=== PATIENT | female | born 1970 | race Caucasian/White ===

== ENCOUNTER → 2018-02-26 | Outpatient (CLI) | payer OTHER ==
--- NOTE | 2018-03-01 09:57 | MM ---
Reason for exam: clinical finding. History: Family history of breast cancer in 3 maternal aunts. Benign excisional biopsy of both breasts. Indicated problem(s): lump or thickening and pain in the left breast. Physical Findings: Nurse Summary: 1.5cm nodule in the right breast at 9 o'clock and a 1.5cm nodule in the left breast at 1 o'clock (nurse mj). MG 3D Diag Mammo W/Cad CINDY Bilateral CC and MLO view(s) were taken. LM, CC with magnification, and LM with magnification view(s) were taken of the right breast. There are two spiculated right masses. First in the right upper outer quadrant measuring at least 1.1cm and the second in the central inner right breast at least 5mm. There are regional calcifications spanning over 5.9cm in the upper outer quadrant of the right breast adjacent and within the right masses. These results were verbally communicated with the patient and result sheet given to the patient on 02/26/18. ASSESSMENT: Incomplete: need additional imaging evaluation, BI-RAD 0 RECOMMENDATION: Ultrasound of the right breast.
--- NOTE | 2018-03-01 10:01 | USB ---
Reason for exam: clinical finding. History: Family history of breast cancer in 3 maternal aunts. Benign excisional biopsy of both breasts. US Breast BILAT Left complete breast ultrasound includes all four quadrants, the retroareolar region and axilla. Finding demonstrates a 6 x 3 x 5mm hypoechoic lesion at 7 o'clock, management based of right biopsy. Right complete breast ultrasound includes all four quadrants, the retroareolar region and axilla. Finding demonstrates a 3 x 2 x 3mm cystic lesion too small to characterize at 9 o'clock palpable, a 1.1 x 0.6 x 1.2cm solid, hypoechoic lesion at 12 o'clock for which a biopsy is recommended, a 1.4 x 0.7 x 1.6cm solid, hypoechoic lesion at 12 o'clock for which a biopsy is recommended and a 0.3 x 0.3 x 0.4cm hypoechoic lesion too small to characterize at 12 o'clock. These results were verbally communicated with the patient and result sheet given to the patient on 02/26/18. ASSESSMENT: Highly suggestive of malignancy, BI-RAD 5 RECOMMENDATION: Ultrasound core biopsy of the right breast. (x 2) Called with mammographic findings and has scheduled an appointment for the patient for 03/02/18 at 2:[address] Meier. PRELIMINARY REPORT CALLED AND FAXED TO DR. MEIER ON 03/01/18.
== END | disposition home or self-care (01) ==
LOC: RADMAMWWP 13:56
PROVIDERS: ATTEND Obstetrics & Gynecology
DX: N64.4 Mastodynia (principal); N63.20 Unspecified lump in the left breast, unspecified quadrant
CPT/HCPCS: 77062; 77066

== ENCOUNTER → 2018-05-27 | Outpatient (CLI) | payer BC ==
--- NOTE | 2018-05-27 18:10 | ECHOF ---
Referral Reason:Z01.818 Pre Chemo MEASUREMENTS -------- HEIGHT: 175.3 cm WEIGHT: 93.0 kg BP: 126/64 RVIDd: 2.9 cm (< 3.3) IVSd: 1.0 cm (0.6 - 1.1) LVIDd: 4.6 cm (3.9 - 5.3) LVPWd: 0.9 cm (0.6 - 1.1) IVSs: 1.5 cm LVIDs: 3.1 cm LVPWs: 1.6 cm LA Diam: 3.0 cm (2.7 - 3.8) LAESV Index (A-L): 28.48 ml/m Ao Diam: 3.2 cm (2.0 - 3.7) MV EXCURSION: 16.659 mm (> 18.000) MV EF SLOPE: 113 mm/s (70 - 150) EPSS: 0.8 cm MV E Alberto: 0.81 m/s MV DecT: 312 ms MV A Alberto: 0.55 m/s MV E/A Ratio: 1.49 FINDINGS -------- Sinus rhythm. This was a technically adequate study. The left ventricular size is normal. Left ventricular wall thickness is normal. Overall left vent ricular systolic function is normal with, an EF between 55 - 60 %. The right ventricle is normal in size. Normal LA size by volume 22+/-6 ml/m2. The right atrial size is normal. The aortic valve is trileaflet, and appears structurally normal. No aortic stenosis or regurgitation. Normal appearing mitral valve. The tricuspid valve appears structurally normal. The pulmonic valve was not well visualized. There is no pulmonic regurgitation present. The aortic root size is normal. Normal inferior vena cava with normal inspiratory collapse consistent with estimated right atrial pre ssure of 5 mmHg. There is no pericardial effusion. CONCLUSIONS -------- 1. Sinus rhythm. 2. This was a technically adequate study. 3. The left ventricular size is normal. 4. Left ventricular wall thickness is normal. 5. Overall left ventricular systolic function is normal with, an EF between 55 - 60 %. 6. Normal LA size by volume 22+/-6 ml/m2. 7. The aortic valve is trileaflet, and appears structurally normal. No aortic stenosis or regurgitati on. 8. Normal appearing mitral valve. 9. The tricuspid valve appears structurally normal. 10. The pulmonic valve was not well visualized. 11. There is no pulmonic regurgitation present. 12. The aortic root size is normal. 13. Normal inferior vena cava with normal inspiratory collapse consistent with estimated right atrial pressure of 5 mmHg. 14. There is no pericardial effusion. TIN POURER: Aracelis Sosa RDCS
== END | disposition home or self-care (01) ==
LOC: RADECHMAIN 14:38
PROVIDERS: ATTEND Internal Medicine Hematology & Oncology
DX: Z01.818 Encounter for other preprocedural examination (principal); Z88.5 Allergy status to narcotic agent
CPT/HCPCS: 93306

== ENCOUNTER 2018-06-21 20:59 | Observation (INO) | payer BC ==
[2018-06-21] MEDS ORDERED: TRIMETHOBENZAMIDE 100 MG/ML 2 ML VIAL IM STA (22:54)
[2018-06-21] MEDS ORDERED: SODIUM CHLORIDE 0.9% 1,000 ML IV STA (22:54)
[2018-06-21] MEDS ORDERED: diphenhydrAMINE 50 MG/ML 1 ML VIAL IVP STA (22:54)
[2018-06-21] MEDS ORDERED: LORazepam 2 MG/ML INJ IV STA (22:54)
[2018-06-21 23:26] LABS: Basophils % (A) 0 %; Eosinophils % (A) 0 %; HCT 37.5 % (34.0-46.0); HGB 12.7 gm/dL (11.4-16.0); Lymphocytes # (A) 0.6 k/uL (1.0-4.8); Lymphocytes % (A) 5 %; MCH 30.6 pg (25.0-35.0); MCHC 33.8 g/dL (31.0-37.0); MCV 90.6 fL (80.0-100.0); Mean Platelet Volume 8.2; Monocytes # (A) 0.2 k/uL (0-1.0); Monocytes % (A) 2 %; Neutrophils % (A) 92 %; Platelet Count 209 k/uL (150-450); RBC 4.14 m/uL (3.80-5.40); RDW 13.5 % (11.5-15.5); WBC 10.8 k/uL (3.8-10.6)
[2018-06-21 23:41] LABS: ALT 82 U/L (9-52); AST 50 U/L (14-36); Albumin 4.1 g/dL (3.5-5.0); Alkaline Phosphatase 92 U/L (38-126); Amylase 52 U/L (30-110); Anion Gap 10 mmol/L; Blood Urea Nitrogen 11 mg/dL (7-17); Calcium 9.5 mg/dL (8.4-10.2); Carbon Dioxide 20 mmol/L (22-30); Chloride 102 mmol/L (98-107); Glucose 126 mg/dL (74-99); Lipase 55 U/L (23-300); Sodium 132 mmol/L (137-145); Total Bilirubin 0.6 mg/dL (0.2-1.3); Total Protein 6.9 g/dL (6.3-8.2)
[2018-06-22 00:12] LABS: Appearance,Urine Clear (Clear); Bacteria,Urine Rare /hpf; Bilirubin,Urine Negative (Negative); Blood,Urine Negative (Negative); Color,Urine Yellow; Glucose,Urine (UA) Negative (Negative); Ketones,Urine 1+ (Negative); Leukocyte Esterase,Urine Negative (Negative); Mucus,Urine Occasional /hpf; Nitrite,Urine Negative (Negative); PH, Urine 8.5 (5.0-8.0); Protein,Urine 1+ (Negative); RBC,Urine 2 /hpf (0-5); Specific Gravity,Urine 1.019 (1.001-1.035); Squamous Epithelial Cell,Urine 5 /hpf (0-4); Urobilinogen,Urine <2.0 mg/dL (<2.0); WBC,Urine <1 /hpf (0-5)
[2018-06-22] MEDS ORDERED: LORazepam 2 MG/ML INJ IV PRN (01:00)
[2018-06-22] MEDS ORDERED: TRIMETHOBENZAMIDE 100 MG/ML 2 ML VIAL IM PRN (01:05)
--- NOTE | 2018-06-22 01:05 | ED ---
Nausea/Vomiting/Diarrhea HPI - General Source: patient Mode of arrival: ambulatory Limitations: no limitations <Paula Bailey - Last Filed: 06/22/18 00:59> <Margarita Sheth - Last Filed: 06/22/18 04:28> - General Chief complaint: Nausea/Vomiting/Diarrhea Stated complaint: Dr maciel,post chemo-dizzy, abd pain Time Seen by Provider: 06/21/18 22:31 - History of Present Illness Initial comments: 48-year-old female patient with past medical history significant for breast cancer diagnosed in February 2018 presents to the emergency department today for complaints of vomiting, weakness, and dizziness after receiving her second dose of chemotherapy this morning. Patient states she did take her home Phenergan but it did not seem to help. States she's been unable to keep down any food or fluids. She denies any abdominal pain, constipation, or diarrhea with this. Denies any hematemesis. Denies any fever or chills with this. States that she did have this chemotherapy dosage one time in the past and did not have a similar reaction. Patient denies any recent rash, shortness breath, chest pain, back pain, numbness, tingling, hematuria, dysuria, urinary urgency, urinary frequency, headache, visual changes, or any other complaints. (Paula Bailey) - Related Data Home Medications Medication Instructions Recorded Confirmed Dexamethasone(Unknown Dose) 2 tab PO DIRECTED 06/21/18 06/21/18 Lactulose 30 gm PO BID 06/21/18 06/21/18 Prochlorperazine [Compazine] 10 mg PO Q6H PRN 06/21/18 06/21/18 Sennosides [Senokot] 8.6 mg PO BID PRN 06/21/18 06/21/18 Allergies Allergy/AdvReac Type Severity Reaction Status Date / Time acetaminophen [From Lortab] Allergy Rash/Hives Verified 06/21/18 22:34 hydrocodone [From Lortab] Allergy Rash/Hives Verified 06/21/18 22:34 Review of Systems ROS Other: All systems not noted in ROS Statement are negative. <Paula Bailey - Last Filed: 06/22/18 00:59> ROS Other: All systems not noted in ROS Statement are negative. <Margarita Sheth - Last Filed: 06/22/18 04:28> ROS Statement: Those systems with pertinent positive or pertinent negative responses have been documented in the HPI. Past Medical History Past Medical History: Cancer History of Any Multi-Drug Resistant Organisms: None Reported Past Surgical History: Breast Surgery Additional Past Surgical History / Comment(s): Port Past Psychological History: No Psychological Hx Reported Smoking Status: Former smoker Past Alcohol Use History: None Reported Past Drug Use History: None Reported <Paula Bailey M - Last Filed: 06/22/18 00:59> General Exam Limitations: no limitations General appearance: alert, in no apparent distress, other (This is a well- developed, well-nourished adult female patient in mild distress. Vital signs upon presentation are temperature 97.7F, pulse 71, respirations 18, blood pressure 132/75, pulse ox 100% on room air.) Eye exam: Present: normal appearance, PERRL, EOMI. Absent: scleral icterus, conjunctival injection, periorbital swelling ENT exam: Present: normal exam, normal oropharynx, mucous membranes moist Respiratory exam: Present: normal lung sounds bilaterally. Absent: respiratory distress, wheezes, rales, rhonchi, stridor Cardiovascular Exam: Present: regular rate, normal rhythm, normal heart sounds. Absent: systolic murmur, diastolic murmur, rubs, gallop, clicks GI/Abdominal exam: Present: soft, normal bowel sounds. Absent: distended, tenderness, guarding, rebound, rigid Neurological exam: Present: alert, oriented X3, CN II-XII intact Psychiatric exam: Present: normal affect, normal mood Skin exam: Present: warm, dry, intact, normal color. Absent: rash <Paula Bailey M - Last Filed: 06/22/18 00:59> Vital Signs 06/21/18 06/21/18 06/22/18 21:25 23:29 01:32 Temperature 97.7 F 97.4 F L Pulse Rate 71 73 78 Respiratory 18 16 19 Rate Blood Pressure 132/75 117/65 99/49 O2 Sat by Pulse 100 99 96 Oximetry Medical Decision Making - Lab Data Result diagrams: 06/21/18 22:06 06/21/18 22:06 - EKG Data -: EKG Interpreted by Me <Paula Bailey - Last Filed: 06/22/18 00:59> - Lab Data Result diagrams: 06/21/18 22:06 06/21/18 22:06 <Margarita Sheth - Last Filed: 06/22/18 04:28> - Medical Decision Making 48-year-old male patient presented to the emergency department today for evaluation of vomiting status post chemotherapy treatment this morning. Physical examination is relatively unremarkable. Labs reviewed and did reveal white blood cell count at 10.8. Neutrophil count 10.0. Sodium is 132, carbon dioxide is 20. Parent creatinine are normal. EKG did show normal sinus rhythm with a prolonged QT interval. Given the prolonged QT we did administer Tigan. Upon reevaluation patient reports continuing to feel very weak and nauseated. She has not had any further vomiting. Given the complexity of treating her nausea with EKG changes we will admit to hospital for further evaluation and continued administration of the Tigan. (Paula Bailey) I personally saw and examined the patient. I reviewed and agree with the mid- level provider findings including all diagnostic interpretations and treatment plans as written. I discussed patient care with Dr. Ramirez who accepts the admission for intractable nausea and vomiting and a chemotherapy patient. ( Margarita Sheth) - Lab Data Lab Results 06/21/18 06/21/18 06/21/18 Range/Units 22:06 22:06 23:26 WBC 10.8 H (3.8-10.6) k/uL RBC 4.14 (3.80-5.40) m/uL Hgb 12.7 (11.4-16.0) gm/dL Hct 37.5 (34.0-46.0) % MCV 90.6 (80.0-100.0) fL MCH 30.6 (25.0-35.0) pg MCHC 33.8 (31.0-37.0) g/dL RDW 13.5 (11.5-15.5) % Plt Count 209 (150-450) k/uL Neutrophils % 92 % Lymphocytes % 5 % Monocytes % 2 % Eosinophils % 0 % Basophils % 0 % Neutrophils # 10.0 H (1.3-7.7) k/uL Lymphocytes # 0.6 L (1.0-4.8) k/uL Monocytes # 0.2 (0-1.0) k/uL Eosinophils # 0.0 (0-0.7) k/uL Basophils # 0.0 (0-0.2) k/uL Sodium 132 L (137-145) mmol/L Potassium 4.0 (3.5-5.1) mmol/L Chloride 102 (98-107) mmol/L Carbon Dioxide 20 L (22-30) mmol/L Anion Gap 10 mmol/L BUN 11 (7-17) mg/dL Creatinine 0.41 L (0.52-1.04) mg/dL Est GFR (CKD-EPI)AfAm >90 (>60 ml/min/1.73 sqM) Est GFR (CKD-EPI)NonAf >90 (>60 ml/min/1.73 sqM) Glucose 126 H (74-99) mg/dL Calcium 9.5 (8.4-10.2) mg/dL Total Bilirubin 0.6 (0.2-1.3) mg/dL AST 50 H (14-36) U/L ALT 82 H (9-52) U/L Alkaline Phosphatase 92 (38-126) U/L Total Protein 6.9 (6.3-8.2) g/dL Albumin 4.1 (3.5-5.0) g/dL Amylase 52 (30-110) U/L Lipase 55 (23-300) U/L Urine Color Yellow Urine Appearance Clear (Clear) Urine pH 8.5 H (5.0-8.0) Ur Specific [place] 1.019 (1.001-1.035) Urine Protein 1+ H (Negative) Urine Glucose (UA) Negative (Negative) Urine Ketones 1+ H (Negative) Urine Blood Negative (Negative) Urine Nitrite Negative (Negative) Urine Bilirubin Negative (Negative) Urine Urobilinogen <2.0 (<2.0) mg/dL Ur Leukocyte Esterase Negative (Negative) Urine RBC 2 (0-5) /hpf Urine WBC <1 (0-5) /hpf Ur Squamous Epith Cells 5 H (0-4) /hpf Urine Bacteria Rare H (None) /hpf Urine Mucus Occasional H (None) /hpf - EKG Data EKG Comments: EKG obtained at 2228 shows normal sinus rhythm with a prolonged QT interval. Ventricular rate is 65, [place] interval 126, QRS duration 94, QTC 466, QTC 484. No evidence of ST elevation or depression. (Paula Bailey) Disposition Decision to Admit Reason: Admit from EC Decision Date: 06/22/18 Decision Time: 01:04 <Paula Bailey - Last Filed: 06/22/18 00:59> <Margarita Sheth - Last Filed: 06/22/18 04:28> Clinical Impression: Intractable vomiting, Chemotherapy induced nausea and vomiting Disposition: ADMITTED IP TO THIS [facility] Condition: Serious
[2018-06-22] MEDS: SODIUM CHLORIDE 0.9% 1,000 ML IV SCH (03:55)
[2018-06-22] MEDS ORDERED: SENNOSIDES 8.6 MG TAB PO PRN (08:18)
[2018-06-22] MEDS: LACTULOSE 20 GM/30 ML CUP PO SCH ×2 (09:09→19:12)
[2018-06-22] MEDS: PANTOPRAZOLE 40 MG/10 ML VIAL IV SCH (09:10)
[2018-06-22 09:40] LABS: ALT 74 U/L (9-52); AST 42 U/L (14-36); Albumin 3.7 g/dL (3.5-5.0); Alkaline Phosphatase 65 U/L (38-126); Anion Gap 7 mmol/L; Blood Urea Nitrogen 10 mg/dL (7-17); Calcium 9.3 mg/dL (8.4-10.2); Carbon Dioxide 23 mmol/L (22-30); Chloride 108 mmol/L (98-107); Glucose 118 mg/dL (74-99); Potassium 4.2 mmol/L (3.5-5.1); Sodium 138 mmol/L (137-145); Total Bilirubin 0.5 mg/dL (0.2-1.3); Total Protein 6.3 g/dL (6.3-8.2)
[2018-06-22 10:04] LABS: Basophils % (A) 0 %; Eosinophils % (A) 0 %; HCT 37.4 % (34.0-46.0); HGB 11.7 gm/dL (11.4-16.0); Lymphocytes # (A) 0.9 k/uL (1.0-4.8); Lymphocytes % (A) 5 %; MCH 29.1 pg (25.0-35.0); MCHC 31.3 g/dL (31.0-37.0); MCV 92.8 fL (80.0-100.0); Mean Platelet Volume 7.2; Monocytes # (A) 0.9 k/uL (0-1.0); Monocytes % (A) 5 %; Neutrophils # (A) 14.8 k/uL (1.3-7.7); Neutrophils % (A) 89 %; Platelet Count 221 k/uL (150-450); RBC 4.03 m/uL (3.80-5.40); RDW 13.7 % (11.5-15.5); WBC 16.6 k/uL (3.8-10.6)
--- NOTE | 2018-06-22 10:09 | P.HPIM ---
History of Present Illness H&P Date: 06/22/18 This is a 48-year-old female patient of Dr. Finn. Patient presented to the hospital with complaints of nausea and vomiting. Patient reports she was diagnosed in February 2018 with breast cancer. Patient underwent bilateral mastectomy. [facility] wall port [facility] and started chemotherapy. Patient nausea and vomiting. Patient also reports she's had issues with constipation since starting chemotherapy. Patient denies any other significant medical history. Oncology services have been consulted. Patient denies any fevers or other signs of infection. Patient denies shortness of breath or cough. Patient denies chest pain or shortness breath patient denies any nausea or vomiting currently. Patient denies any urinary burning or frequency. Review of Systems Please refer to HPI otherwise unremarkable Past Medical History Past Medical History: Cancer History of Any Multi-Drug Resistant Organisms: None Reported Past Surgical History: Breast Surgery Additional Past Surgical History / Comment(s): Port Past Psychological History: No Psychological Hx Reported Smoking Status: Former smoker Past Alcohol Use History: None Reported Past Drug Use History: None Reported - Past Family History Mother Family Medical History: Cancer Medications and Allergies Home Medications Medication Instructions Recorded Confirmed Type Dexamethasone(Unknown Dose) 2 tab PO DIRECTED 06/21/18 06/21/18 History Lactulose 30 gm PO BID 06/21/18 06/21/18 History Prochlorperazine [Compazine] 10 mg PO Q6H PRN 06/21/18 06/21/18 History Sennosides [Senokot] 8.6 mg PO BID PRN 06/21/18 06/21/18 History Allergies Allergy/AdvReac Type Severity Reaction Status Date / Time acetaminophen [From Lortab] Allergy Rash/Hives Verified 06/21/18 22:34 hydrocodone [From Lortab] Allergy Rash/Hives Verified 06/21/18 22:34 Physical Exam Vitals: Vital Signs Temp Pulse Pulse Resp BP BP Pulse Ox 06/22/18 05:00 98.0 F 77 16 101/53 96 06/22/18 01:32 97.4 F L 78 19 99/49 96 06/21/18 23:29 73 16 117/65 99 06/21/18 21:25 97.7 F 71 18 132/75 100 Intake and Output 06/21/18 06/22/18 06/22/18 22:59 06:59 14:59 Intake Total 700 Balance 700 Intake: Intake, IV Titration 460 Amount Sodium Chloride 0.9% 1, 460 000 ml @ 75 mls/hr IV . [id number] [facility] Rx#:[id number] Oral 240 Other: # Voids 1 Weight 97.522 kg Head normocephalic Neck supple Lungs clear to auscultation bilaterally no wheezing or crackles Heart regular rate and rhythm S1-S2, no rub or gallop Abdomen is soft nontender nondistended positive bowel sounds no hepatosplenomegaly Extremities no edema Neuro alert and orientated to 3 Results CBC & Chem 7: 06/21/18 22:06 06/22/18 09:06 Labs: Abnormal Lab Results - Last 24 Hours (Table) 06/21/18 06/21/18 06/21/18 Range/Units 22:06 22:06 23:26 WBC 10.8 H (3.8-10.6) k/uL Neutrophils # 10.0 H (1.3-7.7) k/uL Lymphocytes # 0.6 L (1.0-4.8) k/uL Sodium 132 L (137-145) mmol/L Chloride (98-107) mmol/L Carbon Dioxide 20 L (22-30) mmol/L Creatinine 0.41 L (0.52-1.04) mg/dL Glucose 126 H (74-99) mg/dL AST 50 H (14-36) U/L ALT 82 H (9-52) U/L Urine pH 8.5 H (5.0-8.0) Urine Protein 1+ H (Negative) Urine Ketones 1+ H (Negative) Ur Squamous Epith Cells 5 H (0-4) /hpf Urine Bacteria Rare H (None) /hpf Urine Mucus Occasional H (None) /hpf 06/22/18 Range/Units 09:06 WBC (3.8-10.6) k/uL Neutrophils # (1.3-7.7) k/uL Lymphocytes # (1.0-4.8) k/uL Sodium (137-145) mmol/L Chloride 108 H (98-107) mmol/L Carbon Dioxide (22-30) mmol/L Creatinine (0.52-1.04) mg/dL Glucose 118 H (74-99) mg/dL AST 42 H (14-36) U/L ALT 74 H (9-52) U/L Urine pH (5.0-8.0) Urine Protein (Negative) Urine Ketones (Negative) Ur Squamous Epith Cells (0-4) /hpf Urine Bacteria (None) /hpf Urine Mucus (None) /hpf Thrombosis Risk Factor Assmnt - Choose All That Apply Any of the Below Risk Factors Present?: Yes Each Factor Represents 1 point: Age 41-60 years, Obesity (BMI >25) Thrombosis Risk Factor Assessment Total Risk Factor Score: 2 Thrombosis Risk Factor Assessment Level: Low Risk Assessment and Plan Assessment: 1. Nausea vomiting status post chemotherapy. Amylase and lipase within normal limits. Oncology services have been consulted. Normal saline at 75 2. Breast cancer. Patient was diagnosed in February 2018. Status post mastectomy. Patient states she chest wall port placed on May 17 this year. Patient has completed 2 rounds of chemotherapy. Oncology services have been consulted 3. Elevated liver enzymes. AST 42 ALT 74. These appear to be trending down DVT prophylaxis Lovenox. GI prophylaxis Protonix Time with Patient: Greater than 30 (Greater than 60% of the total time spent in counseling and coordination of care. I performed an examination of the patient and discussed their management with the Nurse Practitioner. I have reviewed the Nurse Practitioner's notes and agree with the documented findings and plan of care)
[2018-06-22 10:28] LABS: Appearance,Urine Clear (Clear); Bilirubin,Urine Negative (Negative); Blood,Urine Negative (Negative); Color,Urine Light Yellow; Glucose,Urine (UA) Negative (Negative); Ketones,Urine Negative (Negative); Leukocyte Esterase,Urine Negative (Negative); Nitrite,Urine Negative (Negative); Protein,Urine Negative (Negative); Specific Gravity,Urine 1.006 (1.001-1.035); Urobilinogen,Urine <2.0 mg/dL (<2.0)
[2018-06-22] MEDS: DEXAMETHASONE 4 MG TAB PO SCH ×2 (10:28→19:12)
[2018-06-22] MEDS ORDERED: OLANZapine 10 MG TAB PO SCH (12:15)
[2018-06-22] MEDS ORDERED: ONDANSETRON 4 MG/2 ML VIAL IVP PRN (12:30)
[2018-06-22] MEDS: SENNOSIDES-DOCUSATE SODIUM 1 EACH TAB PO SCH ×2 (13:12→19:13)
--- NOTE | 2018-06-22 13:25 | XR ---
EXAMINATION TYPE: XR abdomen acute w cxr DATE OF EXAM: 06/22/2018 CLINICAL HISTORY: Chest and abdominal pain with nausea and vomiting TECHNIQUE: Single frontal view of chest is obtained. Supine and upright views of the abdomen are acq uired. COMPARISON: None. FINDINGS: There is right internal jugular Mediport catheter terminating in SVC. The lungs are grossl y clear without pleural effusion or pneumothorax. Cardiac silhouette size appears within normal limi ts. Overlying breast expanders are redemonstrated bilaterally. Osseous structures are intact. Some paucity of small bowel gas is present. Gas and fecal material is seen in nondistended colon francisco ng the periphery. Scattered pelvic phleboliths are identified bilaterally. Radiodense device overlies left midabdomen. No pneumoperitoneum is identified. IMPRESSION: 1. No acute pulmonary process. 2. Overall nonspecific but likely nonobstructive bowel gas pattern.
[2018-06-22] MEDS: LORATADINE 10 MG TAB PO SCH (13:32)
--- NOTE | 2018-06-22 16:14 | XR ---
EXAMINATION TYPE: XR chest 1V DATE OF EXAM: 06/22/2018 COMPARISON: Prior chest x-ray 06/22/2018 HISTORY: Abdominal pain, nausea and vomiting TECHNIQUE: Single lateral view of the chest is obtained. FINDINGS: Strand-like densities are present at the lung bases. Postop changes are noted to the breas ts, there is a Port-A-Cath in place. IMPRESSION: Postop changes. Basilar atelectasis or scarring.
--- NOTE | 2018-06-22 17:32 | P.CONS ---
History of Present Illness - Reason for Consult Consult date: 06/22/18 Breast Cancer on chemo Requesting physician: Margarita Sheth - Chief Complaint Intractable Nausea and vomting - History of Present Illness Alison presented with an abnormal screening mammogram in L Breast, nurse felt R breast abnormality and U/S of R Breast revealed 2 areas of suspecious lesions in UOQ and UIQ. She was seen by Dr Dixon, had biopsies of 2 lesions in R Breast revealed Grade I Invasive ductal carcinoma, ER/WY 100%/98%, [id number] was equivocal by IHC, negative by FISH. MRI of breasts revealed multicentric disease in upper outer and inner quad of R breast, as well as, a suspecious area in UOQ of L Breast: Bx on 03/26/18 revealed Grade I invasive ductal carcinoma, ER/WY 97%/85% [id number] 0. The patient had negative genetic study, she opted for bilateral skin-sparing mastectomies on 04/14/18 revealing 3 lesions in R Breast 3.8 cm Grade I, 1.3 cm Grade II, and multiple lesions 0.1-0.5 cm. Had Grade II DCIC without EIC, all margins negative, SLNB +(1-2) 4mm without extranodal disease. L Breast had 1.5 cm Grade I without DCIS, SLNB Neg (0-6). No DCIS. The patient recovered very well, will be seen at [facility] on 04/28/18. 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 She is status Post cycle two of DD AC - on 06/21/18. After cycle one she had severe constipation which was not relieved with regimen of colace and miralax, when she was seen in follow-up one week after chemo she still felt nauseated and constipated therefore was increased on a bowel regimen with Senna-s and lactulose. She was successfully moving bowels therefore stopping this. After treatment yesterday she experienced persistent n/v/c She called last night and advised to be seen in ER. Her WBC is elevated, this was prior to neulasta and after one dose dex. Review of Systems A 14 pt review was assessed and completed and all neg excrpt hpi Past Medical History Past Medical History: Cancer History of Any Multi-Drug Resistant Organisms: None Reported Past Surgical History: Breast Surgery Additional Past Surgical History / Comment(s): Port Past Psychological History: No Psychological Hx Reported Smoking Status: Former smoker Past Alcohol Use History: None Reported Past Drug Use History: None Reported - Past Family History Mother Family Medical History: Cancer Medications and Allergies Home Medications Medication Instructions Recorded Confirmed Type Dexamethasone(Unknown Dose) 2 tab PO DIRECTED 06/21/18 06/21/18 History Lactulose 30 gm PO BID 06/21/18 06/21/18 History Prochlorperazine [Compazine] 10 mg PO Q6H PRN 06/21/18 06/21/18 History Sennosides [Senokot] 8.6 mg PO BID PRN 06/21/18 06/21/18 History Allergies Allergy/AdvReac Type Severity Reaction Status Date / Time acetaminophen [From Lortab] Allergy Rash/Hives Verified 06/21/18 22:34 hydrocodone [From Lortab] Allergy Rash/Hives Verified 06/21/18 22:34 Physical Exam Vitals: Vital Signs Temp Pulse Pulse Resp BP BP Pulse Ox 06/22/18 12:21 98.2 F 70 16 109/71 98 06/22/18 05:00 98.0 F 77 16 101/53 96 06/22/18 01:32 97.4 F L 78 19 99/49 96 06/21/18 23:29 73 16 117/65 99 06/21/18 21:25 97.7 F 71 18 132/75 100 Intake and Output 06/21/18 06/22/18 06/22/18 22:59 06:59 14:59 Intake Total 700 Balance 700 Intake: Intake, IV Titration 460 Amount Sodium Chloride 0.9% 1, 460 000 ml @ 75 mls/hr IV . [id number] [facility] Rx#:[id number] Oral 240 Other: # Voids 1 Weight 97.522 kg Gen: alert nad neck supple mouth no thrush head ncnt lungs cta bilateral heart tachy abdomen tender RUQ to palpation, non-distedded and soft. ext no edema Results CBC & Chem 7: 06/22/18 09:06 06/22/18 09:06 Labs: Abnormal Lab Results - Last 24 Hours (Table) 06/21/18 06/21/18 06/21/18 Range/Units 22:06 22:06 23:26 WBC 10.8 H (3.8-10.6) k/uL Neutrophils # 10.0 H (1.3-7.7) k/uL Lymphocytes # 0.6 L (1.0-4.8) k/uL Sodium 132 L (137-145) mmol/L Chloride (98-107) mmol/L Carbon Dioxide 20 L (22-30) mmol/L Creatinine 0.41 L (0.52-1.04) mg/dL Glucose 126 H (74-99) mg/dL AST 50 H (14-36) U/L ALT 82 H (9-52) U/L Urine pH 8.5 H (5.0-8.0) Urine Protein 1+ H (Negative) Urine Ketones 1+ H (Negative) Ur Squamous Epith Cells 5 H (0-4) /hpf Urine Bacteria Rare H (None) /hpf Urine Mucus Occasional H (None) /hpf 06/22/18 06/22/18 Range/Units 09:06 09:06 WBC 16.6 H (3.8-10.6) k/uL Neutrophils # 14.8 H (1.3-7.7) k/uL Lymphocytes # 0.9 L (1.0-4.8) k/uL Sodium (137-145) mmol/L Chloride 108 H (98-107) mmol/L Carbon Dioxide (22-30) mmol/L Creatinine (0.52-1.04) mg/dL Glucose 118 H (74-99) mg/dL AST 42 H (14-36) U/L ALT 74 H (9-52) U/L Urine pH (5.0-8.0) Urine Protein (Negative) Urine Ketones (Negative) Ur Squamous Epith Cells (0-4) /hpf Urine Bacteria (None) /hpf Urine Mucus (None) /hpf Chest x-ray: report reviewed Abdominal x-ray: report reviewed Assessment and Plan Plan: Assessment and Recommendations: 1. Carcinoma of the Breast: - Status Post treatment with cycle 2 od AC 06/21/18 2. Persistent Nausea and Vomting: - Ativan and Zyprexa for nausea, hold Zofran and compazine for QT prolongations 3. Leukocytosis: - Infectious versus reactive - Hoffman Cultures 4. Abdominal Pain and Constipation: - Acute abdomen Series - Increased Bowel regimen COntinue supportive care EKG per primary team Monitor LFTs Physician Attest: I have completed the full history and physical of patient and agree with above dictation, Impression and plan devloped by myself, dictated as a scribe.
[2018-06-22] MEDS: OLANZapine 5 MG TAB PO SCH (19:13)
[2018-06-23] MEDS: SODIUM CHLORIDE 0.9% 1,000 ML IV SCH ×3 (01:03→19:00)
[2018-06-23 07:29] LABS: Basophils # (A) 0.4 k/uL (0-0.2); Basophils % (A) 1 %; Eosinophils # (A) 0.1 k/uL (0-0.7); Eosinophils % (A) 0 %; HGB 11.7 gm/dL (11.4-16.0); Lymphocytes # (A) 0.3 k/uL (1.0-4.8); Lymphocytes % (A) 1 %; MCH 29.7 pg (25.0-35.0); MCHC 31.7 g/dL (31.0-37.0); MCV 93.9 fL (80.0-100.0); Mean Platelet Volume 7.4; Monocytes % (A) 2 %; Neutrophils # (A) 48.2 k/uL (1.3-7.7); Neutrophils % (A) 96 %; Platelet Count 220 k/uL (150-450); RBC 3.94 m/uL (3.80-5.40); RDW 13.8 % (11.5-15.5)
[2018-06-23 07:32] LABS: ALT 75 U/L (9-52); AST 32 U/L (14-36); Albumin 3.6 g/dL (3.5-5.0); Alkaline Phosphatase 79 U/L (38-126); Anion Gap 8 mmol/L; Blood Urea Nitrogen 12 mg/dL (7-17); Calcium 9.2 mg/dL (8.4-10.2); Carbon Dioxide 25 mmol/L (22-30); Chloride 109 mmol/L (98-107); Glucose 91 mg/dL (74-99); Potassium 4.3 mmol/L (3.5-5.1); Sodium 142 mmol/L (137-145); Total Bilirubin 0.4 mg/dL (0.2-1.3); Total Protein 6.2 g/dL (6.3-8.2)
[2018-06-23 07:33] LABS: WBC 50.1 k/uL (3.8-10.6)
[2018-06-23 08:00] LABS: Poikilocytosis (M) Present
--- NOTE | 2018-06-23 08:10 | CONS ---
CONSULTATION DATE OF SERVICE: 06/22/2018. REASON FOR CONSULTATION: Leukocytosis post chemo. HISTORY OF PRESENT ILLNESS: The patient is a 48-year-old female with past medical history significant for left breast cancer status post bilateral mastectomy. Biopsies positive for invasive ductal carcinoma. Patient has been advised chemotherapy. The first chemo was 2 weeks ago and the last chemo #2 the patient received on 06/21/2018. Post chemo, the patient has felt really nauseated and throwing up, unable to keep anything down. No significant abdominal pain except having diarrhea with loose stools multiple with no blood or mucus in the stool. The patient denies any high-grade fever, rigors or chills. With these symptoms, the patient did call oncology support who advised the patient to go to the ER. On arrival to the ER, the patient was afebrile. She was noticed to have elevated white count 16.6, though UA was not significantly positive. The patient subsequently has been admitted to hospital. The patient did have an acute abdomen series as well as chest x-ray that was reported to be negative. ID was consulted for her elevated white count. Blood culture has been done which was negative so far and the patient currently now started on antibiotic therapy. As of this evening, the patient seemed to be slightly better has been able to keep some of the fluids down and continued not to having any abdominal pain. The patient has not received Neulasta before this elevated white count was noticed. REVIEW OF SYSTEMS: Positive points have been mentioned in the HPI. Rest of systems has been negative. PAST MEDICAL HISTORY: Breast cancer. PAST SURGICAL HISTORY: Bilateral mastectomy and lymph node dissection and Mediport placement. SOCIAL HISTORY: Remote history of smoking. No drinking or drug use. FAMILY HISTORY: Mother with history of cancer. ALLERGIES: Allergies to ACETAMINOPHEN and HYDROCODONE. MEDICATIONS: Medications include the patient is currently on dexamethasone, Lovenox, lactulose, Claritin, Ativan, Zyprexa, Protonix, Senokot, and Saline. PHYSICAL EXAMINATION: On examination, blood pressure 105/67 with a pulse of 86, temperature 97.9. She is 96% on room air. General description is a middle-aged female lying in bed in no distress. No tachypnea or accessory muscle of respiration use. HEENT examination shows no pallor or scleral icterus. Oral mucous membrane is dry. No pharyngeal erythema or thrush. NECK: Trachea central. No thyromegaly. LUNGS: Unlabored breathing, clear to auscultation anteriorly. HEART: S1, S2. Regular rate and rhythm. ABDOMEN: Soft, no tenderness. No guarding. No organomegaly. EXTREMITIES: No edema of feet. SKIN EXAMINATION: No rash or masses palpable. NEUROLOGICAL: Patient is awake, alert, and oriented x3. Mood and affect normal. LABS: Hemoglobin is 11.7, white count 16.6, BUN of 10, creatinine 0.52. UA has been negative. Blood culture obtained currently pending. Acute abdominal series was negative. DIAGNOSTIC IMPRESSION AND PLAN: Patient with leukocytosis in this patient admitted to hospital with significant gastrointestinal symptom after the patient did receive her chemotherapy with question of possible reactive to the chemotherapy or viral gastroenteritis, underlying bacterial infection less likely. The patient did not run any fever and does not look toxic and no evidence of infection in any other part of the body. PLAN: 1. We will obtain stool studies for culture and stool for C difficile. 2. Continue with symptomatic treatment with IV fluids, antiemetics, and hold on therapy as clinical suspicion of infection. 3. We will follow up on clinical condition and culture to further adjust medication if needed. Thank you for this consultation. Will follow this patient along with you. MMODL / IJN: [id number] /
[2018-06-23] MEDS: LACTULOSE 20 GM/30 ML CUP PO SCH ×2 (09:15→21:10)
[2018-06-23] MEDS: SENNOSIDES-DOCUSATE SODIUM 1 EACH TAB PO SCH ×2 (09:15→21:11)
[2018-06-23] MEDS: DEXAMETHASONE 4 MG TAB PO SCH ×2 (09:16→21:11)
[2018-06-23] MEDS: PANTOPRAZOLE 40 MG/10 ML VIAL IV SCH (09:16)
[2018-06-23] MEDS: LORATADINE 10 MG TAB PO SCH (09:16)
[2018-06-23] MEDS: ENOXAPARIN 40 MG/0.4 ML SYRINGE SQ SCH (09:16)
--- NOTE | 2018-06-23 11:10 | P.PN ---
Subjective Progress Note Date: 06/23/18 This is a 48-year-old female patient of Dr. Finn. Patient presented to the hospital with complaints of nausea and vomiting. Patient reports she was diagnosed in February 2018 with breast cancer. Patient underwent bilateral mastectomy. In patient had chest wall port placed and started chemotherapy. Patient nausea and vomiting. Patient also reports she's had issues with constipation since starting chemotherapy. Patient denies any other significant medical history. Oncology services have been consulted. Patient denies any fevers or other signs of infection. Patient denies shortness of breath or cough. Patient denies chest pain or shortness breath patient denies any nausea or vomiting currently. Patient denies any urinary burning or frequency. On 06/23/2018 patient is alert and oriented 3. Patient reports that she feels improved from yesterday. Patient is nausea and vomiting has subsided. Patient did have a bowel movement yesterday. Patient's white blood cell critically high today of 50.1. Infectious disease is following. Discussed with oncology services. At this time oncology and infectious disease with psychosis is likely from chemotherapy reaction. No signs of active infection at this time. Patient remains afebrile. Patient has been cultured. Chest x-ray abdominal x- ray and abdominal ultrasound ordered. No antibiotics at this time per ID Objective - Vital Signs Vital signs: Vital Signs Temp 97.7 F 06/23/18 05:00 Pulse 79 06/23/18 05:00 Resp 16 06/23/18 05:00 BP 109/68 06/23/18 05:00 Pulse Ox 95 06/23/18 05:00 Intake & Output 06/22/18 06/23/18 06/23/18 18:59 06:59 18:59 Intake Total 600 1780 Balance 600 1780 Intake: Intake, IV Titration 600 Amount Sodium Chloride 0.9% 1, 600 000 ml @ 75 mls/hr IV . [id number] DINA Rx#:[id number] Oral 1780 Other: # Voids 2 - Exam Head normocephalic Neck supple Lungs clear to auscultation bilaterally no wheezing or crackles Heart regular rate and rhythm S1-S2, no rub or gallop Abdomen is soft nontender nondistended positive bowel sounds no hepatosplenomegaly Extremities no edema Neuro alert and orientated to 3 - Labs CBC & Chem 7: 06/23/18 06:42 06/23/18 06:42 Labs: Abnormal Lab Results - Last 24 Hours (Table) 06/23/18 06/23/18 Range/Units 06:42 06:42 WBC 50.1 H* (3.8-10.6) k/uL Neutrophils # 48.2 H (1.3-7.7) k/uL Lymphocytes # 0.3 L (1.0-4.8) k/uL Basophils # 0.4 H (0-0.2) k/uL Chloride 109 H (98-107) mmol/L Creatinine 0.49 L (0.52-1.04) mg/dL ALT 75 H (9-52) U/L Total Protein 6.2 L (6.3-8.2) g/dL Assessment and Plan Assessment: 1. Nausea vomiting status post chemotherapy. Amylase and lipase within normal limits. Oncology services have been consulted. Normal saline at 75 2. Breast cancer. Patient was diagnosed in February 2018. Status post mastectomy. Patient states she chest wall port placed on May 17 this year. Patient has completed 2 rounds of chemotherapy. Oncology services have been consulted 3. Elevated liver enzymes. AST 42 ALT 74. These appear to be trending down 4. Leukocytosis. WBC elevated at 50.1. Discussed case with oncology services. Believes this is likely reactive from chemotherapy. Infectious disease is following. Pancultures ordered. Patient remains afebrile. Chest x- ray completed showing postoperative changes. Basilar atelectasis or scarring. Acute abdominal x-ray completed showing no acute pulmonary process. Overall nonspecific but likely nonobstructive bowel gas pattern. Abdominal ultrasound also ordered. C. diff and stool culture ordered. No antibiotics at this time per ID 5. Prolonged QT on EKG. Discussed with oncology services will hold off on Compazine and Zofran at this time. Repeat EKG has been ordered DVT prophylaxis Lovenox. GI prophylaxis Protonix I performed an examination of the patient and discussed their management with the Nurse Practitioner. I have reviewed the Nurse Practitioner's notes and agree with the documented findings and plan of care
--- NOTE | 2018-06-23 16:06 | P.PN ---
Subjective Progress Note Date: 06/23/18 Principal diagnosis: Nausea and vomitting on chemo WBC increased today. Overall her symptoms are improving though and abdomen is not impressive on exam Objective - Vital Signs Vital signs: Vital Signs Temp 98.6 F 06/23/18 12:22 Pulse 72 06/23/18 12:22 Resp 16 06/23/18 12:22 BP 118/75 06/23/18 12:22 Pulse Ox 97 06/23/18 12:22 Intake & Output 06/22/18 06/23/18 06/23/18 18:59 06:59 18:59 Intake Total 600 1780 600 Balance 600 1780 600 Intake: Intake, IV Titration 600 600 Amount Sodium Chloride 0.9% 1, 600 600 000 ml @ 75 mls/hr IV . [id number] DINA Rx#:[id number] Oral 1780 Other: # Voids 2 - Exam gen: alert nad neck supple mouth no thrush head ncnt lungs cta bilateral heart tachy abdomen tender non-distedded and soft. ext no edema - Labs CBC & Chem 7: 06/23/18 06:42 06/23/18 06:42 Labs: Abnormal Lab Results - Last 24 Hours (Table) 06/23/18 06/23/18 Range/Units 06:42 06:42 WBC 50.1 H* (3.8-10.6) k/uL Neutrophils # 48.2 H (1.3-7.7) k/uL Lymphocytes # 0.3 L (1.0-4.8) k/uL Basophils # 0.4 H (0-0.2) k/uL Chloride 109 H (98-107) mmol/L Creatinine 0.49 L (0.52-1.04) mg/dL ALT 75 H (9-52) U/L Total Protein 6.2 L (6.3-8.2) g/dL Assessment and Plan Plan: Assessment and Recommendations: 1. Carcinoma of the Breast: - Status Post treatment with cycle 2 od AC 06/21/18 2. Persistent Nausea and Vomting: - Ativan and Zyprexa for nausea, hold Zofran and compazine for QT prolongations 3. Leukocytosis: - Infectious versus reactive - Hoffman Cultures - await ultrasound of abdomen 4. Abdominal Pain and Constipation: - Acute abdomen Series - Increased Bowel regimen COntinue supportive care EKG per primary team Monitor LFTs - improving Physician Attest: I have completed the full history and physical of patient and agree with above dictation, Impression and plan devloped by myself, dictated as a scribe.
[2018-06-23] MEDS: OLANZapine 5 MG TAB PO SCH (21:11)
--- NOTE | 2018-06-23 23:37 | PN ---
PROGRESS NOTE DATE OF SERVICE: 06/23/2018. REASON FOR FOLLOWUP: Acute increase in , leukocytosis, possibly reactive. INTERVAL HISTORY: The patient is afebrile. The patient's nausea has improved. No vomiting. Tolerating her diet. No abdominal pain. Still has some loose with no blood or mucus in it. No chest pain, shortness of breath or cough. PHYSICAL EXAMINATION: Blood pressure 130/51 with a pulse of 85, temperature of 98, she is 95% on room air. GENERAL DESCRIPTION: A middle-aged female up in the bed in no distress. HEENT: No pallor or scleral icterus. Oral mucosa is dry. LUNGS: Unlabored breathing. Clear to auscultation. HEART: S1, S2. Regular rate and rhythm. ABDOMEN: Soft, no tenderness. EXTREMITIES: No edema of the feet. LABS: Hemoglobin 11.7, white count 15,000, BUN of , creatinine 0.49. Stool culture is obtained currently pending. DIAGNOSTIC IMPRESSION AND PLAN: Patient admitted to the hospital with intractable nausea, vomiting, subsequently developed diarrhea after the patient did have chemotherapy, question of possible reactive with chemo with elevated white count, also reactive. Source is likely acute gastroenteritis, possibly viral. The patient is to continue with symptomatic treatment while waiting for the culture to finalize. Patient is not running any fever. Clinical suspicion is low for underlying bacterial infection. Continue supportive care. MMPRICEL / DORIEN: [id number] /
[2018-06-24] MEDS: SODIUM CHLORIDE 0.9% 1,000 ML IV SCH (04:39)
[2018-06-24 05:15] VITALS: BP 119/74; PULSE 70; RESP 16; TEMP 97.8
[2018-06-24] MEDS ORDERED: PANTOPRAZOLE 40 MG TABLET PO SCH (07:30)
[2018-06-24 08:00] LABS: Basophils # (A) 0.3 k/uL (0-0.2); Basophils % (A) 1 %; Eosinophils # (A) 0.1 k/uL (0-0.7); Eosinophils % (A) 0 %; HGB 11.4 gm/dL (11.4-16.0); Lymphocytes # (A) 0.5 k/uL (1.0-4.8); Lymphocytes % (A) 1 %; MCH 30.3 pg (25.0-35.0); MCHC 31.7 g/dL (31.0-37.0); MCV 95.6 fL (80.0-100.0); Monocytes # (A) 0.5 k/uL (0-1.0); Monocytes % (A) 1 %; Neutrophils # (A) 46.8 k/uL (1.3-7.7); Neutrophils % (A) 97 %; Platelet Count 194 k/uL (150-450); RBC 3.76 m/uL (3.80-5.40); RDW 13.8 % (11.5-15.5); WBC 48.2 k/uL (3.8-10.6)
[2018-06-24 08:07] LABS: ALT 53 U/L (9-52); AST 21 U/L (14-36); Albumin 3.3 g/dL (3.5-5.0); Alkaline Phosphatase 80 U/L (38-126); Anion Gap 8 mmol/L; Blood Urea Nitrogen 12 mg/dL (7-17); Calcium 8.9 mg/dL (8.4-10.2); Carbon Dioxide 25 mmol/L (22-30); Chloride 107 mmol/L (98-107); Glucose 200 mg/dL (74-99); Potassium 3.6 mmol/L (3.5-5.1); Sodium 140 mmol/L (137-145); Total Bilirubin 0.2 mg/dL (0.2-1.3); Total Protein 5.7 g/dL (6.3-8.2)
[2018-06-24] MEDS: ENOXAPARIN 40 MG/0.4 ML SYRINGE SQ SCH (08:50)
[2018-06-24] MEDS: SENNOSIDES-DOCUSATE SODIUM 1 EACH TAB PO SCH (08:51)
[2018-06-24] MEDS: LORATADINE 10 MG TAB PO SCH (08:51)
[2018-06-24] MEDS: LACTULOSE 20 GM/30 ML CUP PO SCH (08:51)
--- NOTE | 2018-06-24 11:24 | P.DS ---
Providers Date of admission: 06/22/18 01:00 Expected date of discharge: 06/24/18 Attending physician: Consuelo Ramirez Consults: 06/22/18 01:01 Consult Physician Routine Consulting Provider: Jaime Bragg Consult Reason/Comments: established patient Do you want consulting provider notified?: Yes, Notify in am 06/22/18 13:18 Consult Physician Routine Consulting Provider: Gisella Ruvalcaba Consult Reason/Comments: elevated WBC postchemotherapy Do you want consulting provider notified?: Yes Primary care physician: Lyndsey Finn Hospital Course: Discharge diagnosis 1. Nausea vomiting status post chemotherapy. Amylase and lipase within normal limits. Oncology services have been consulted. Normal saline at 75 2. Breast cancer. Patient was diagnosed in February 2018. Status post mastectomy. Patient states she chest wall port placed on May 17 this year. Patient has completed 2 rounds of chemotherapy. Oncology services have been consulted 3. Elevated liver enzymes. AST 42 ALT 74. Liver enzymes are trending down. AST 21 ALT 53 4. Leukocytosis. WBC elevated at 50.1. Discussed case with oncology services. Believes this is likely reactive from chemotherapy. Infectious disease is following. Pancultures ordered. Patient remains afebrile. Chest x- ray completed showing postoperative changes. Basilar atelectasis or scarring. Acute abdominal x-ray completed showing no acute pulmonary process. Overall nonspecific but likely nonobstructive bowel gas pattern. Abdominal ultrasound also ordered. C. diff and stool culture ordered. No antibiotics at this time per ID. Discussed with infectious disease. Patient was on medication Neulesta postchemotherapy and steroids. Patient remains completely asymptomatic. Afebrile. Per infectious disease patient can be DC'd home without antibiotics at this time 5. Prolonged QT on EKG. Discussed with oncology services will hold off on Compazine and Zofran at this time. Repeat EKG completed showing normal sinus rhythm with prolonged QT QT prolonging is improving with 402/469. Discussed with oncology services. Zyprexa can be DC'd due to possible prolonging QT effect. Patient's home Compazine also DC'd. Patient to follow-up with oncology services Hospital course This is a 48-year-old female patient of Dr. Finn. Patient presented to the hospital with complaints of nausea and vomiting. Patient reports she was diagnosed in February 2018 with breast cancer. Patient underwent bilateral mastectomy. In patient had chest wall port placed and started chemotherapy. Patient nausea and vomiting. Patient also reports she's had issues with constipation since starting chemotherapy. Patient denies any other significant medical history. Oncology services have been consulted. Patient denies any fevers or other signs of infection. Patient denies shortness of breath or cough. Patient denies chest pain or shortness breath patient denies any nausea or vomiting currently. Patient denies any urinary burning or frequency. On 06/23/2018 patient is alert and oriented 3. Patient reports that she feels improved from yesterday. Patient is nausea and vomiting has subsided. Patient did have a bowel movement yesterday. Patient's white blood cell critically high today of 50.1. Infectious disease is following. Discussed with oncology services. At this time oncology and infectious disease with psychosis is likely from chemotherapy reaction. No signs of active infection at this time. Patient remains afebrile. Patient has been cultured. Chest x-ray abdominal x- ray and abdominal ultrasound ordered. No antibiotics at this time per ID On 06/24/2018 patient is alert and oriented 3. Patient feels much improved. Patient denies nausea vomiting or diarrhea. Patient denies chest pain or shortness breath. Patient denies any urinary burning or frequency. White blood cells remain high at 48. Discussed with oncology and infectious disease. Patient white count response to chemotherapy and medication. Patient states that she is very eager to go home. Patient has been cleared by oncology and infectious disease. Repeat EKG reviewed. QT prolonging medications DC'd. I performed an examination of the patient and discussed their management with the Nurse Practitioner. I have reviewed the Nurse Practitioner's notes and agree with the documented findings and plan of care Patient Condition at Discharge: Stable Plan - Discharge Summary New Discharge Prescriptions: Continue Sennosides [Senokot] 8.6 mg PO BID PRN PRN Reason: Constipation Lactulose 30 gm PO BID Discontinued Prochlorperazine [Compazine] 10 mg PO Q6H PRN PRN Reason: Nausea Dexamethasone(Unknown Dose) 2 tab PO DIRECTED Discharge Medication List Lactulose 30 gm PO BID 06/21/18 [History] Sennosides [Senokot] 8.6 mg PO BID PRN 06/21/18 [History] Follow up Appointment(s)/Referral(s): Lyndsey Finn DO [Primary Care Provider] - 1-2 days Jaime Bragg MD [STAFF PHYSICIAN] - 1 Week Discharge Disposition: HOME SELF-CARE
[2018-06-24] MEDS ORDERED: INSULIN ASPART (NovoLOG) 100 UNIT/ML VIAL SQ SCH (12:30)
--- NOTE | 2018-06-24 18:53 | PN ---
PROGRESS NOTE DATE OF SERVICE: 06/24/2018 REASON FOR FOLLOWUP: 1. Leukocytosis, likely drug-related. 2. Patient with acute gastritis, possibly viral or medication effect. INTERVAL HISTORY: The patient was seen on rounds earlier this afternoon. The patient has been afebrile. She was breathing comfortably. The patient's nausea and vomiting has resolved and diarrhea has resolved as well. Did have small bowel movement. No abdominal pain. No chest pain, shortness of breath or cough. PHYSICAL EXAMINATION: Blood pressure is 119/74 with a pulse of 70, temperature 97.8. She is 96% on room air. General description is a middle-aged female up in the bed in no distress. RESPIRATORY SYSTEM: Unlabored breathing. Clear to auscultation anteriorly. HEART: S1, S2. Regular rate and rhythm. ABDOMEN: Soft. No tenderness. LABS: Hemoglobin is 11.4, white count of 48.2, BUN of 12, creatinine 0.54. Stool culture has been negative so far. Blood culture negative. DIAGNOSTIC IMPRESSION AND PLAN: 1. Patient with acute nausea, vomiting and diarrhea with a question of medication- related versus a viral etiology. Patient has shown overall clinical improvement. Patient okay to discharge home with no need for antibiotic therapy, as her symptoms have resolved. 2. Patient with elevated white count, likely medication effect. Continue supportive care. MMODL / IJN: [id number] /
== END 2018-06-24 13:30 | disposition home or self-care (01) ==
LOC: EC 20:59 → SUPCPDRO 20:59 → 3NMEDONC 06-22 01:00
PROVIDERS: ADMIT Internal Medicine; ATTEND Internal Medicine
DX: R11.2 Nausea with vomiting, unspecified (principal); T45.1X5A Adverse effect of antineoplastic and immunosuppressive drugs, initial encounter; C50.411 Malignant neoplasm of upper-outer quadrant of right female breast; C50.211 Malignant neoplasm of upper-inner quadrant of right female breast; C50.412 Malignant neoplasm of upper-outer quadrant of left female breast; Z17.0 Estrogen receptor positive status [ER+]; I45.81 Long QT syndrome; K29.00 Acute gastritis without bleeding; K59.00 Constipation, unspecified; R74.8 Abnormal levels of other serum enzymes; D72.829 Elevated white blood cell count, unspecified; Z90.13 Acquired absence of bilateral breasts and nipples; Z87.891 Personal history of nicotine dependence; Z79.899 Other long term (current) drug therapy; Z88.5 Allergy status to narcotic agent; Z80.9 Family history of malignant neoplasm, unspecified; Z80.3 Family history of malignant neoplasm of breast
CPT/HCPCS: 96376 ×2; 96361 ×3; 96372 ×4; 96375 ×2; 96374; 99285; 36415; 93005 ×2; 80053 ×4; 82150; 83690; 85025 ×4; 81003; 81001; 87040; 87086; 87045; 87046; 74022; 71045; G0378 ×3; J8540 ×2; J2060 ×2; J1200; J3250 ×2; J1642; J1650 ×2; C9113 ×2

== ENCOUNTER → 2019-01-21 | Outpatient (CLI) | payer BC ==
--- NOTE | 2019-01-23 16:59 | PE ---
EXAMINATION TYPE: PET CT fusion skull to thigh DATE OF EXAM: 01/21/2019 COMPARISON: NONE HISTORY: Right-sided breast cancer treated with surgery April 13, 2018 with chemotherapy through 2018 and radiation treatment through November 2018. TECHNIQUE: Following the intravenous administration of 12.791 mCi of F-18 FDG, whole body images are performed from the skull base to the midthigh. Images are reviewed on the computer in the coronal, axial, and sagittal planes. Reconstructed rotating images are created on independent workstation and reviewed on the computer. A noncontrast CT is performed in conjunction with the PET scan. SCAN: Initial Scan FINDINGS: SKULL BASE AND NECK: No areas of suspicious hypermetabolic uptake. CHEST, MEDIASTINUM, AND HILAR REGION: Bilateral total mastectomy changes with breast expanders in rema ce. Surgical clips in the right axilla. No suspicious hypermetabolic uptake or masses identified. ABDOMEN AND PELVIS: No suspicious hypermetabolic uptake. OSSEOUS STRUCTURES: No suspicious hypermetabolic uptake. OTHER CT: There is right internal jugular Mediport catheter terminating near cavoatrial junction. Postsurgical change of bilateral breasts. Tiny pericardial effusion. Mild to moderate bilateral lower lung linear atelectasis and/or scarring. Simple appearing 1.4 cm thin-walled cyst posterior right hepatic lobe axial image 141. Slightly retro flexed uterus. Occasional pelvic phleboliths. Simple nonobstructing 2 mm calculus midpole of the left kidney axial image 158. IMPRESSION: Surgical change to bilateral breasts. No suspicious masses or hypermetabolic uptake to pascual ggest residual or metastatic malignancy.
--- NOTE | 2019-01-24 19:26 | BD ---
EXAMINATION TYPE: Axial Bone Density DATE OF EXAM: 01/21/2019 COMPARISON: NONE CLINICAL HISTORY: 48-year-old female postmenopausal screening without HRT Height: 69 Weight: 235.0 FRAX RISK QUESTIONS: Alcohol (3 or more units per day): no Family History (Parent hip fracture): no Glucocorticoids (More than 3mos): no (Ex: prednisone, prednisolone, methylprednisolone, dexamethasone, and hydrocortisone). History of Fracture in Adulthood: no Secondary Osteoporosis: 1. Type 1 Diabetes: no 2. Hyperthyroidism: no 3. Menopause before 45: no 4. Malnutrition: no 5. Chronic liver disease: no Rheumatoid Arthritis: no Current Tobacco Use: no RISK FACTORS HISTORY OF: Surgery to Spine/Hip(right/left)/Wrist (right/left): no Family History of Osteoporosis: yes Active: yes Diet low in dairy products/other sources of calcium: no Postmenopausal woman: age 48 chemo induced MEDICATIONS: chemo meds, Femara Additional History: breast cancer in 2018( bilateral) EXAM MEASUREMENTS: Bone mineral densitometry was performed using the [employer] System. Bone mineral density as measured about the Lumbar spine is: ----- L1-L4(G/cm2): 1.047 T Score Values are as follows: ----- L2: -1.4 ----- L3: -1.0 ----- L4: -1.4 ----- L1-L4: -1.1 Bone mineral density : baseline Bone mineral density about the R hip (g/cm2): 0.919 Bone mineral density about the L hip (g/cm2): 0.919 T Score values are as follows: -----R Neck: -0.9 -----L Neck: -0.9 -----R Total: -0.3 -----L Total: -0.6 Bone mineral density : baseline IMPRESSION: Osteopenia (T Score between -2.5 and -1). There is slightly increased risk of fracture and the patient may be considered for treatment. Re-Screen 2-5 years. NOTE: T-SCORE=SD OF THE YOUNG ADULT MEAN.
== END | disposition home or self-care (01) ==
LOC: RADBDWWP 13:22
PROVIDERS: ATTEND Internal Medicine Hematology & Oncology
DX: C50.811 Malignant neoplasm of overlapping sites of right female breast (principal); Z91.040 Latex allergy status
CPT/HCPCS: 77080; 78815; A9552

== ENCOUNTER → 2021-02-15 | Outpatient (CLI) | payer BC ==
--- NOTE | 2021-02-15 11:10 | BD ---
EXAMINATION TYPE: Axial Bone Density DATE OF EXAM: 02/15/2021 COMPARISON: 01.21.2019 CLINICAL HISTORY: 50 YR OLD FEMALE.....ICD-10 CODE: Z79.89 POST MENOPAUSAL Height: 67 Weight: 243 FRAX RISK QUESTIONS: NOTHING TO NOTE HERE RISK FACTORS HISTORY OF: Postmenopausal woman: YES, AT 48 CHEMO INDUCED Take estrogen and/or progesterone medications: NO, BUT ON FEMARA FOR BR CA Poor Health: BILAT BR CA, HX OF CHEMO AND RADIATION, Hyperparathyroidism: NO Adrenal Insufficiency: NO MEDICATIONS: Additional Medications: HX OF CHEMO FOR BR CA, FEMARA, ANTI DEPRESSANT, REFLUX MEDS, VIT D AND CALCI UM COMBO, HX OF RADIATION Additional History: BILAT BREAST CANCER 2018, OVERALL GENERALIZED PAIN AND ACHINESS, EXAM MEASUREMENTS: Bone mineral densitometry was performed using the [employer] System. Bone mineral density as measured about the Lumbar spine is: ----- L1-L4(G/cm2): 1.039 T Score Values are as follows: ----- L1: -0.7 ----- L2: -1.3 ----- L3: -1.2 ----- L4: -1.5 ----- L1-L4: -1.2 Bone mineral density has: Decreased -1.0% since study of: 01.21.2019 Bone mineral density about the R hip (g/cm2): 0.968 Bone mineral density about the L hip (g/cm2): 0.925 T Score values are as follows: -----R Neck: -0.9 -----L Neck: -1.2 -----R Total: -0.3 -----L Total: -0.7 Bone mineral density has: Decreased -0.5% since study of: 01.21.2019 FRAX%s: THERE IS A 4.4% CHANCE FOR A MAJOR OSTEOPOROTIC FX AND A 0.3% FOR HIP.......PROBABILITY F OR FX IN 10 YS TIME IMPRESSION: Osteopenia (T Score between -2.5 and -1). There is slightly increased risk of fracture and the patient may be considered for treatment. Re-Screen 2-5 years. NOTE: T-SCORE=SD OF THE YOUNG ADULT MEAN.
== END | disposition home or self-care (01) ==
LOC: RADBDWWP 08:57
PROVIDERS: ATTEND Internal Medicine Hematology & Oncology
DX: C50.412 Malignant neoplasm of upper-outer quadrant of left female breast (principal); Z79.890 Hormone replacement therapy
CPT/HCPCS: 77080

== ENCOUNTER 2021-03-24 20:36 | Emergency (ER) | payer BC ==
[2021-03-24 21:04] VITALS: BP 108/68; PULSE 64; RESP 22; TEMP 99.1
[2021-03-24] MEDS ORDERED: ONDANSETRON 4 MG/2 ML VIAL IVP STA (21:43)
[2021-03-24] MEDS ORDERED: SODIUM CHLORIDE 0.9% 1,000 ML IV STA (21:43)
[2021-03-24] MEDS ORDERED: SODIUM CHLORIDE 0.9% 50 ML IVPB ONE (22:00)
[2021-03-24] MEDS ORDERED: CASIRIVIMAB/IMDEVIMAB (EUA) 1,200 MG in SODIUM CHLORIDE 0.9% 100 ML IVPB ONE (22:00)
[2021-03-24 22:14] LABS: Basophils % (A) 1 %; Eosinophils % (A) 1 %; HCT 42.9 % (34.0-46.0); HGB 14.4 gm/dL (11.4-16.0); Lymphocytes # (A) 0.6 k/uL (1.0-4.8); Lymphocytes % (A) 14 %; MCH 30.2 pg (25.0-35.0); MCHC 33.4 g/dL (31.0-37.0); MCV 90.2 fL (80.0-100.0); Mean Platelet Volume 8.3; Monocytes # (A) 0.2 k/uL (0-1.0); Monocytes % (A) 4 %; Neutrophils # (A) 3.4 k/uL (1.3-7.7); Neutrophils % (A) 79 %; Platelet Count 146 k/uL (150-450); RBC 4.76 m/uL (3.80-5.40); RDW 13.3 % (11.5-15.5); WBC 4.3 k/uL (3.8-10.6)
[2021-03-24 22:43] LABS: ALT 33 U/L (4-34); AST 43 U/L (14-36); African American GFR (CKD) >90 (>60 ml/min/1.73 sqM); Albumin 4.3 g/dL (3.5-5.0); Alkaline Phosphatase 109 U/L (38-126); Anion Gap 12 mmol/L; Blood Urea Nitrogen 13 mg/dL (7-17); Calcium 9.1 mg/dL (8.4-10.2); Carbon Dioxide 25 mmol/L (22-30); Chloride 98 mmol/L (98-107); Glucose 119 mg/dL (74-99); Non-African American GFR(CKD) >90 (>60 ml/min/1.73 sqM); Potassium 3.6 mmol/L (3.5-5.1); Sodium 135 mmol/L (137-145); Total Bilirubin 0.6 mg/dL (0.2-1.3); Total Protein 7.4 g/dL (6.3-8.2)
--- NOTE | 2021-03-24 23:06 | ED ---
Nausea/Vomiting/Diarrhea HPI - General Chief complaint: Nausea/Vomiting/Diarrhea Stated complaint: Covid+,Vomiting Time Seen by Provider: 03/24/21 21:19 Source: patient, RN notes reviewed Mode of arrival: wheelchair Limitations: no limitations - History of Present Illness Initial comments: Patient is a 50-year-old female presenting to the emergency Department with complaints of worsening Covid symptoms. Patient tested +5 days ago, her symptoms started 1 week ago. She has been having nausea and vomiting, loss of taste and smell. She states she's been unable to tolerate any oral intake including water. Abdominal pain but lots of cramping. She does admit to some lightheadedness and dizziness. She states her cough has improved, no chest pain or shortness of breath. She has been having low-grade temperatures. She has no further complaints right now. Her vital signs are stable upon arrival. - Related Data Home Medications Medication Instructions Recorded Confirmed Lactulose 30 gm PO BID 06/21/18 06/21/18 Sennosides [Senokot] 8.6 mg PO BID PRN 06/21/18 06/21/18 Previous Rx's Medication Instructions Recorded LORazepam [Ativan] 0.5 mg PO BID PRN 3 Days #5 tab 06/24/18 Allergies Allergy/AdvReac Type Severity Reaction Status Date / Time acetaminophen [From Lortab] Allergy Rash/Hives Verified 03/24/21 21:04 hydrocodone [From Lortab] Allergy Rash/Hives Verified 03/24/21 21:04 Review of Systems ROS Statement: Those systems with pertinent positive or pertinent negative responses have been documented in the HPI. ROS Other: All systems not noted in ROS Statement are negative. Past Medical History Past Medical History: Cancer History of Any Multi-Drug Resistant Organisms: None Reported Past Surgical History: Breast Surgery Additional Past Surgical History / Comment(s): Port Past Psychological History: No Psychological Hx Reported Smoking Status: Never smoker Past Alcohol Use History: None Reported Past Drug Use History: None Reported - Past Family History Mother Family Medical History: Cancer General Exam - General Exam Comments Initial Comments: GENERAL: Patient is well-developed and well-nourished. Patient is nontoxic and in no acute distress. HEAD: Atraumatic, normocephalic. EYES: Pupils equal round and reactive to light, extraocular movements intact, sclera anicteric, conjunctiva are normal. Eyelids were unremarkable. ENT: Oropharynx clear without exudates. Moist mucous membranes. NECK: Normal range of motion, supple without lymphadenopathy or JVD. LUNGS: Unlabored respirations. Breath sounds clear to auscultation bilaterally and equal. No wheezes rales or rhonchi. HEART: Regular rate and rhythm without murmurs, rubs or gallops. ABDOMEN: Soft, scattered tenderness on exam, no specific area pain, normoactive bowel sounds. No guarding, no rebound. No masses appreciated. MUSCULOSKELETAL: Normal extremities with adequate strength and normal range of motion, no pitting or edema. No clubbing or cyanosis. NEUROLOGICAL: Patient is alert and oriented x 3. SKIN: Warm, Dry, normal turgor, no rashes or lesions noted. Limitations: no limitations Course Vital Signs 03/24/21 21:00 Temperature 99.1 F Pulse Rate 64 Respiratory 22 Rate Blood Pressure 108/68 O2 Sat by Pulse 96 Oximetry Medical Decision Making - Medical Decision Making Patient is a 50-year-old female here with Covid for the past week, presenting with worsening nausea and vomiting, unable to tolerate oral intake. Her vital signs are stable upon arrival. Labs are unremarkable. Patient received fluids, Zofran and is resting currently. She just received medical antibodies, no adverse side effect. Patient is stable for discharge. She can continue his Zofran as needed for any nausea. She can follow up with her primary care. She is agreeable as planned care and she is stable for discharge. - Lab Data Result diagrams: 03/24/21 22:00 03/24/21 22:00 Lab Results 03/24/21 03/24/21 Range/Units 22:00 22:00 WBC 4.3 (3.8-10.6) k/uL RBC 4.76 (3.80-5.40) m/uL Hgb 14.4 (11.4-16.0) gm/dL Hct 42.9 (34.0-46.0) % MCV 90.2 (80.0-100.0) fL MCH 30.2 (25.0-35.0) pg MCHC 33.4 (31.0-37.0) g/dL RDW 13.3 (11.5-15.5) % Plt Count 146 L (150-450) k/uL MPV 8.3 Neutrophils % 79 % Lymphocytes % 14 % Monocytes % 4 % Eosinophils % 1 % Basophils % 1 % Neutrophils # 3.4 (1.3-7.7) k/uL Lymphocytes # 0.6 L (1.0-4.8) k/uL Monocytes # 0.2 (0-1.0) k/uL Eosinophils # 0.0 (0-0.7) k/uL Basophils # 0.0 (0-0.2) k/uL Sodium 135 L (137-145) mmol/L Potassium 3.6 (3.5-5.1) mmol/L Chloride 98 (98-107) mmol/L Carbon Dioxide 25 (22-30) mmol/L Anion Gap 12 mmol/L BUN 13 (7-17) mg/dL Creatinine 0.74 (0.52-1.04) mg/dL Est GFR (CKD-EPI)AfAm >90 (>60 ml/min/1.73 sqM) Est GFR (CKD-EPI)NonAf >90 (>60 ml/min/1.73 sqM) Glucose 119 H (74-99) mg/dL Calcium 9.1 (8.4-10.2) mg/dL Total Bilirubin 0.6 (0.2-1.3) mg/dL AST 43 H (14-36) U/L ALT 33 (4-34) U/L Alkaline Phosphatase 109 (38-126) U/L Total Protein 7.4 (6.3-8.2) g/dL Albumin 4.3 (3.5-5.0) g/dL Disposition Clinical Impression: COVID-19, Dehydration, Nausea & vomiting Disposition: HOME SELF-CARE Condition: Stable Instructions (If sedation given, give patient instructions): Coronavirus Disease 2019 (COVID-19) Additional Instructions: Please return to the Emergency Department if symptoms worsen or any other concerns. Recommend Zofran every 8 hours as needed for any nausea or vomiting. Increase your fluid intake. Follow up with your primary care. Is patient prescribed a controlled substance at d/c from ED?: No Referrals: None,Stated [Primary Care Provider] - 1-2 days Time of Disposition: 01:06
[2021-03-25] MEDS ORDERED: ONDANSETRON 4 MG ODT STARTER PACK 2 TAB BTL PO STA (00:44)
[2021-03-25] MEDS ORDERED: KETOROLAC 15 MG/ML 1 ML VIAL IVP STA (00:44)
== END 2021-03-25 01:55 | disposition home or self-care (01) ==
LOC: EC 20:36
DX: U07.1 COVID-19 (principal); E86.0 Dehydration; Z88.5 Allergy status to narcotic agent; Z88.6 Allergy status to analgesic agent
CPT/HCPCS: 99284 ×2; 96375 ×2; 96361 ×2; 36415; 80053; 85025; 96374; M0243; J2405; J1885; S0119; Q0243

== ENCOUNTER → 2021-07-17 | Outpatient (CLI) | payer BC ==
--- NOTE | 2021-07-17 12:09 | USB ---
Reason for exam: follow-up at short interval from prior study. History: Family history of breast cancer in 3 maternal aunts. Benign excisional biopsy of both breasts. Physical Findings: A clinical breast exam by your physician is recommended on an annual basis and results should be correlated with mammographic findings. US Breast Limited RT Right limited breast ultrasound including focal area of concern, retroareolar and axilla demonstrates a 1.2 x 0.6 x 0.9cm oval, solid, hyperechoic lesion at the axilla tail palpable. Likely post operative fibrous tissue. Correlate clinically. These results were verbally communicated with the patient and result sheet given to the patient on 07/17/21. ASSESSMENT: Benign, BI-RAD 2 RECOMMENDATION: Clinical management of the right breast. Manage patient on a clinical basis.
== END | disposition home or self-care (01) ==
LOC: RADUSWWP 10:40
PROVIDERS: ATTEND Obstetrics & Gynecology
DX: N63.0 Unspecified lump in unspecified breast (principal)

== ENCOUNTER → 2021-09-06 | Outpatient (CLI) | payer BC ==
--- NOTE | 2021-09-09 16:12 | PE ---
EXAMINATION TYPE: PET CT fusion skull to thigh DATE OF EXAM: 09/06/2021 COMPARISON: Prior PET/CT January 21, 2019. Right breast targeted ultrasound July 17, 2021. HISTORY: Right-sided breast cancer treated with surgery April 13, 2018 with chemotherapy through 2018 and radiation treatment through November 2018. Recent abnormal physical exam right axilla. TECHNIQUE: Following the intravenous administration of 12.1 mCi of F-18 FDG, whole body images are p erformed from the skull base to the midthigh. Images are reviewed on the computer in the coronal, ax ial, and sagittal planes. Reconstructed rotating images are created on independent workstation and r eviewed on the computer. A localization and attenuation correction CT is performed in conjunction w ith the PET scan. Blood glucose level equals 96 SCAN: Subsequent Scan FINDINGS: SKULL BASE AND NECK: No new areas of suspicious hypermetabolic uptake. CHEST, MEDIASTINUM, AND HILAR REGION: Bilateral total mastectomy changes redemonstrated with interval removal of breast expanders. Surgical clips scattered throughout the right breast including the righ t axilla along with more focal surgical clips medially in the upper portion left breast all redemonst rated. No suspicious hypermetabolic uptake or masses identified with particular attention to the righ t axillary area of recent clinical concern. No areas of abnormal hypermetabolic uptake throughout the thorax. ABDOMEN AND PELVIS: Normal excretion. Mild uptake throughout bowel loops in the liver. No new suspici ous hypermetabolic uptake. OSSEOUS STRUCTURES: No new suspicious hypermetabolic uptake. OTHER CT: Prior right internal jugular Mediport catheter has been removed in the interval. Tiny pericardial effusion anterior-inferior aspect redemonstrated. Mild bilateral lower lung linear a telectasis and/or scarring. Simple appearing 1.4 cm thin-walled cyst posterior right hepatic lobe axial image 144 redemonstrated. Retroflexed uterus again seen. Scattered left-sided pelvic phleboliths . IMPRESSION: No suspicious new hypermetabolic masses to suggest active local or metastatic malignancy recurrence.
== END | disposition home or self-care (01) ==
LOC: RADPETMAIN 16:02
PROVIDERS: ATTEND Internal Medicine Hematology & Oncology
DX: C50.811 Malignant neoplasm of overlapping sites of right female breast (principal)
CPT/HCPCS: 78815; A9552

== ENCOUNTER → 2024-03-03 | Outpatient (CLI) | payer BC ==
--- NOTE | 2024-03-03 14:50 | BD ---
EXAMINATION TYPE: Axial Bone Density DATE OF EXAM: 03/03/2024 CLINICAL HISTORY: 53 years old Female. ICD-10 CODE: M81.0 OSTEOPENIA Height: 67.5 Weight: 240 FRAX RISK QUESTIONS: Family History (Parent hip fracture): no History of Fracture in Adulthood: no Secondary Osteoporosis: no RISK FACTORS HISTORY OF: Surgery to Spine/Hip(right/left)/Wrist (right/left): no MEDICATIONS: Thyroid Medications: yes Which medication: Synthroid How Lon years Osteoporosis Medications: no EXAM MEASUREMENTS: Bone mineral densitometry was performed using the apprupt System. Bone mineral density as measured about the Lumbar spine is: ----- L1-L4(G/cm2): 0.992 T Score Values are as follows: ----- L1: -1.0 ----- L2: -1.9 ----- L3: -1.7 ----- L4: -1.7 ----- L1-L4: -1.6 Z Score Values are as follows: ----- L1: -1.4 ----- L2: -2.3 ----- L3: -2.1 ----- L4: -2.1 ----- L1-L4: -1.9 Bone mineral density has: Decreased -4.5% since study of: 02/15/2021 Bone mineral density about the R hip (g/cm2): 0.925 Bone mineral density about the L hip (g/cm2): 0.940 T Score values are as follows: -----R Neck: -1.4 -----L Neck: -1.5 -----R Total: -0.7 -----L Total: -0.5 Z Score values are as follows: -----R Neck: -1.1 -----L Neck: -1.3 -----R Total: -0.8 -----L Total: -0.7 Bone mineral density has: Decreased -1.5% since study of: 02/15/2021 FRAX%s: The graph provided illustrates a 6.0% chance for a major osteoporotic fx and a 0.5% chance fo r the hips probability for fx in 10 years time. IMPRESSION: Osteopenia (T Score between -2.5 and -1). There is slightly increased risk of fracture and the patient may be considered for treatment. Re-Screen 2-5 years. NOTE: T-SCORE=SD OF THE YOUNG ADULT MEAN. [facility], , 03/03/2024 2:47 PM
== END | disposition home or self-care (01) ==
LOC: RADBDWWP 11:20
PROVIDERS: ATTEND Internal Medicine Hematology & Oncology
DX: M85.89 Other specified disorders of bone density and structure, multiple sites (principal)
CPT/HCPCS: 77080